=== PATIENT | male | born 1935 | race African-American/Black ===

== ENCOUNTER 2020-04-04 23:18 | Observation (INO) ==
[2020-04-04 23:40] LABS: Basophils # 0.1 10*3/uL (0.0-0.2); Basophils % 0.4 % (0.0-0.8); Eosinophils # 0.1 10*3/uL (0.0-0.87); Eosinophils % 0.8 % (0.00-10.9); Hematocrit 51.1 VOL% (42.0-52.0); Hemoglobin 15.9 GM/DL (14.0-18.0); Immature Granulocytes % 0.4 %; Immature Granulocytes Absolute 0.05 #; Lymphocytes # 4.3 10*3/uL (1.4-4.0); Lymphocytes % 33.9 % (21.2-54.2); Mean Corpuscular HGB Conc 31.1 GM/DL (32-36); Mean Corpuscular Volume 86.6 FL (87-102); Mean Platelet Volume 11.3 FL (9.6-12.0); Monocytes % 9.4 % (1.7-12.7); Neutrophils % 55.1 % (38.7-73.9); Platelet Count 226 T/CUMM (130-400); Red Cell Distribution Width 15.8 % (9.3-17.3); White Blood Count 12.5 T/CUMM (4-12)
[2020-04-05] MEDS ORDERED: LORazepam 2 MG/1 ML VIAL ONE (00:22)
[2020-04-05] MEDS ORDERED: LORazepam 2 MG/1 ML VIAL IV STA (00:30)
[2020-04-05] MEDS ORDERED: FOSPHENYTOIN 1,000 MG.PE in SODIUM CHLORIDE 0.9% 250 ML IV STA ×2 (00:31→00:32)
[2020-04-05 00:50] LABS: Bacteria,Urine Many /HPF (Few); Bilirubin,Urine Negative (Negative); Blood, Urine Moderate mg/dL (Negative); Glucose,Urine (UA) Negative (Negative); Granular Casts,Urine 1 /LPF (0-1); Hyaline Casts,Urine 35 /LPF (0-3); Ketones,Urine Negative (Negative); Mucus,Urine Occasional /LPF (Occasional); Nitrite,Urine Positive (Negative); Protein,Urine 100 MG/DL; RBC,Urine 7 /HPF (0-4); Squamous Epithelial Cell,Urine Occasional /HPF (0-10); Urine Appearance Slightly Hazy (Clear); Urine Color Yellow (Yellow); Urine Specific Gravity 1.019 (1.001-1.035); Urine Urobilinogen < 2.0 EU/DL (0.2-1.0); WBC,Urine 113 /HPF (0-6)
[2020-04-05 00:52] LABS: Alanine Aminotransferase 20 U/L (16-61); Albumin 3.4 G/DL (3.4-5.0); Alkaline Phosphatase 169 U/L (45-117); Aspartate Amino Transferase 23 U/L (0-37); Bilirubin,Total < 0.39 MG/DL (0.2-1.0); Blood Urea Nitrogen 19 MG/DL (7-18); Calcium 9.5 MG/DL (8.5-10.1); Estimated Glom Filtration Rate 30 ML/MIN; Glucose 152 MG/DL (74-106); Osmolality,Calculated 287.1 MOS/KG (273-304); Total Protein 9.4 G/DL (6.4-8.3)
[2020-04-05] MEDS ORDERED: LEVOFLOXACIN INJ 500 MG in PREMIX 1 EACH IV STA (01:10)
[2020-04-05] MEDS ORDERED: DEXTROSE 50% 25 GM/50 ML VIAL IV PRN (02:16)
[2020-04-05] MEDS ORDERED: GLUCAGON 1 MG VIAL IM PRN (02:16)
[2020-04-05] MEDS ORDERED: ONDANSETRON 4 MG/2 ML VIAL IV PRN (02:16)
[2020-04-05] MEDS ORDERED: POTASSIUM CHLORIDE RIDER 10 MEQ in PREMIX 1 EACH IV PRN (03:28)
[2020-04-05] MEDS ORDERED: LORazepam 2 MG/1 ML VIAL IV PRN (03:33)
[2020-04-05 03:51] LABS: ABG Base Excess -3.6 MMOL/L (-2.5-2.5); ABG HCO3 21.1 MMOL/L (20-26); ABG Oxygen Saturation 82.9 % (95-100); ABG PH 7.351 (7.35-7.45); ABG PO2 51.9 MM HG (80-95); ABG TCO2 18.6 MMOL/L (23-27); Allen Test Positive
[2020-04-05] MEDS: SODIUM CHLORIDE 0.9% 1,000 ML IV SCH ×2 (05:52→16:23)
[2020-04-05 08:57] LABS: Basophils % 0.2 % (0.0-0.8); Eosinophils % 0.1 % (0.00-10.9); Hemoglobin 14.2 GM/DL (14.0-18.0); Immature Granulocytes % 0.2 %; Immature Granulocytes Absolute 0.02 #; Lymphocytes # 1.7 10*3/uL (1.4-4.0); Lymphocytes % 17.7 % (21.2-54.2); Mean Corpuscular HGB Conc 31.6 GM/DL (32-36); Mean Corpuscular Volume 84.1 FL (87-102); Mean Platelet Volume 11.3 FL (9.6-12.0); Monocytes % 12.4 % (1.7-12.7); Neutrophils % 69.4 % (38.7-73.9); Platelet Count 190 T/CUMM (130-400); Red Blood Count 5.35 MC/CUMM (3.8-5.5); Red Cell Distribution Width 15.6 % (9.3-17.3); White Blood Count 9.4 T/CUMM (4-12)
[2020-04-05] MEDS ORDERED: DIPYRIDAMOLE 50 MG TABLET PO SCH (09:00)
[2020-04-05] MEDS ORDERED: hydroCHLOROthiazide 12.5 MG CAPSULE PO SCH (09:00)
[2020-04-05 09:31] LABS: Calcium 8.7 MG/DL (8.5-10.1); Osmolality,Calculated 291.7 MOS/KG (273-304)
[2020-04-05] MEDS: ASPIRIN CHEW 81 MG TABLET PO SCH (12:43)
[2020-04-05] MEDS: SERTRALINE 50 MG TABLET PO SCH (12:45)
[2020-04-05] MEDS: FAMOTIDINE 20 MG TABLET PO SCH (12:45)
[2020-04-05] MEDS: DOCUSATE SODIUM 100 MG CAPSULE PO SCH (12:46)
[2020-04-05] MEDS: OXcarbazepine 300 MG TABLET PO SCH ×2 (12:46→21:41)
[2020-04-05] MEDS: POTASSIUM CHLORIDE 20 MEQ TABLET PO SCH ×3 (12:49→21:40)
[2020-04-05] MEDS: traZODone 50 MG TABLET PO SCH (21:35)
[2020-04-05] MEDS: LEVOFLOXACIN INJ 250 MG in PREMIX 1 EACH IV SCH (21:41)
[2020-04-05] MEDS: GABAPENTIN 400 MG CAPSULE PO SCH ×2 (21:41→21:50)
[2020-04-06 09:42] LABS: Basophils % 0.7 % (0.0-0.8); Eosinophils # 0.3 10*3/uL (0.0-0.87); Eosinophils % 5.4 % (0.00-10.9); Hematocrit 44.2 VOL% (42.0-52.0); Hemoglobin 13.9 GM/DL (14.0-18.0); Immature Granulocytes % 0.3 %; Immature Granulocytes Absolute 0.02 #; Lymphocytes # 1.9 10*3/uL (1.4-4.0); Mean Corpuscular HGB Conc 31.4 GM/DL (32-36); Mean Corpuscular Volume 85.2 FL (87-102); Monocytes % 7.7 % (1.7-12.7); Neutrophils % 53.9 % (38.7-73.9); Platelet Count 169 T/CUMM (130-400); Red Blood Count 5.19 MC/CUMM (3.8-5.5); Red Cell Distribution Width 15.8 % (9.3-17.3)
[2020-04-06 10:00] LABS: Calcium 8.5 MG/DL (8.5-10.1); Osmolality,Calculated 288.7 MOS/KG (273-304)
[2020-04-06] MEDS ORDERED: ENOXAPARIN 30 MG/0.3 ML SYRINGE SUBCUT SCH (13:00)
[2020-04-06] MEDS: ASPIRIN CHEW 81 MG TABLET PO SCH (13:08)
[2020-04-06] MEDS: DOCUSATE SODIUM 100 MG CAPSULE PO SCH (13:08)
[2020-04-06] MEDS: FAMOTIDINE 20 MG TABLET PO SCH (13:08)
[2020-04-06] MEDS: OXcarbazepine 300 MG TABLET PO SCH ×2 (13:08→22:59)
[2020-04-06] MEDS: POTASSIUM CHLORIDE 20 MEQ TABLET PO SCH ×3 (13:08→23:00)
[2020-04-06] MEDS: SERTRALINE 50 MG TABLET PO SCH (13:09)
[2020-04-06] MEDS: traZODone 50 MG TABLET PO SCH ×2 (13:14→23:00)
[2020-04-06] MEDS: GABAPENTIN 400 MG CAPSULE PO SCH ×3 (13:15→22:59)
[2020-04-06] MEDS: SODIUM CHLORIDE 0.9% 1,000 ML IV SCH (14:05)
[2020-04-06] MEDS: levETIRAcetam 250 MG TABLET PO SCH (17:56)
[2020-04-06] MEDS: LEVOFLOXACIN INJ 250 MG in PREMIX 1 EACH IV SCH (23:05)
[2020-04-07 11:28] VITALS: BP 139/75
[2020-04-07] MEDS: POTASSIUM CHLORIDE 20 MEQ TABLET PO SCH (12:35)
[2020-04-07] MEDS: levETIRAcetam 250 MG TABLET PO SCH (12:36)
[2020-04-07] MEDS: FAMOTIDINE 20 MG TABLET PO SCH (12:36)
[2020-04-07] MEDS: SERTRALINE 50 MG TABLET PO SCH (12:37)
[2020-04-07] MEDS: DOCUSATE SODIUM 100 MG CAPSULE PO SCH (12:37)
[2020-04-07] MEDS: ASPIRIN CHEW 81 MG TABLET PO SCH (12:38)
[2020-04-07] MEDS: OXcarbazepine 300 MG TABLET PO SCH (12:38)
[2020-04-07] MEDS ORDERED: CEFUROXIME 250 MG TABLET PO SCH (21:00)
== END 2020-04-07 13:12 ==
LOC: EDBD → EDUNIT# → N.EDINP 23:18 → N.ED 23:18 → SUATTDRO 04-05 02:16 → N.3E 04-05 03:35
PROVIDERS: ADMIT Internal Medicine; ATTEND Internal Medicine